=== PATIENT | male | born 1945 | race Caucasian/White ===

== ENCOUNTER 2018-06-20 10:24 | Emergency (ER) | payer OTHER ==
[~2018-06-20] VITALS: Ht 175.3 cm; Wt 106.6 kg
[2018-06-20 10:30] VITALS: Ht 175.3 cm; Wt 106.6 kg
[2018-06-20 13:21] VITALS: BP 140/72
== END 2018-06-20 13:26 | disposition home or self-care (01) ==
LOC: ED 10:24
DX: M25.561 Pain in right knee (principal); I10 Essential (primary) hypertension; E11.9 Type 2 diabetes mellitus without complications; E78.00 Pure hypercholesterolemia, unspecified; E03.9 Hypothyroidism, unspecified
CPT/HCPCS: J2001; Q0092